=== PATIENT | male | born 1965 | race Caucasian/White ===

== ENCOUNTER 2020-08-24 01:21 | Emergency (ER) | payer OTHER ==
[2020-08-24 01:34] VITALS: BP 147/89; PULSE 74; RESP 18; TEMP 98.1
--- NOTE | 2020-08-24 02:29 | XR ---
EXAMINATION TYPE: XR shoulder complete LT DATE OF EXAM: 08/24/2020 COMPARISON: NONE HISTORY: Pain TECHNIQUE: 3 views FINDINGS: I see no fracture nor dislocation. Joint spaces are normal. There are no pathologic calcifi cations. IMPRESSION: Negative left shoulder exam. No fracture.
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
== END 2020-08-24 03:00 | disposition home or self-care (01) ==
LOC: EC 01:21
DX: S40.212A Abrasion of left shoulder, initial encounter (principal); F17.200 Nicotine dependence, unspecified, uncomplicated; F12.90 Cannabis use, unspecified, uncomplicated; V29.9XXA Motorcycle rider (driver) (passenger) injured in unspecified traffic accident, initial encounter; Y92.410 Unspecified street and highway as the place of occurrence of the external cause
CPT/HCPCS: 99284